=== PATIENT | male | born 1965 | race Caucasian/White ===

== ENCOUNTER 2020-08-17 19:14 | Emergency (ER) | payer MEDICAID ==
[~2020-08-17] VITALS: Ht 175.3 cm; Wt 99.0 kg
[2020-08-17 20:28] LABS: BASOPHILS % (AUTO) 1 % (0-1); EOSINOPHILS % (AUTO) 1 % (1-7); LYMPHOCYTES % (AUTO) 13 % (22-44); MD NO; MEAN CORPUSCULAR HEMOGLOBIN 33.2 pg (27.5-34.5); MEAN CORPUSCULAR HGB CONC 34.1 g/dL (33.2-36.2); MEAN PLATELET VOLUME 7.4 fL (7.4-10.4); MONOCYTES % (AUTO) 8 % (2-9); NEUTROPHILS % (AUTO) 77 % (42-75); PLATELET COUNT 272 x10^3/uL (130-400); RED BLOOD COUNT 5.08 x10^6/uL (4.38-5.82); RED CELL DISTRIBUTION WIDTH 14.2 % (9.4-14.8)
--- NOTE | 2020-08-17 20:32 | NUR ---
Patient is resting comfortably in bed. Vital Signs within normal limits.
[2020-08-17 20:33] LABS: ALANINE AMINOTRANSFERASE 88 U/L (12-78); ALBUMIN 3.5 g/dL (3.4-5.0); ANION GAP 9 mmol/L (5-15); CALCIUM 8.8 mg/dL (8.5-10.1); CHLORIDE 99 mmol/L (98-107); CREATININE 1.24 mg/dL (0.7-1.3)
[2020-08-17 20:35] LABS: ALKALINE PHOSPHATASE 158 U/L (45-117); BILIRUBIN,TOTAL 0.5 mg/dL (0.2-1.0); TOTAL PROTEIN 8.2 g/dL (6.4-8.2)
--- NOTE | 2020-08-17 20:51 | NUR ---
REPORT RECIEVED FROM ILENE LY. PT RESTING COMFORTABLY IN [facility]
[2020-08-17 21:11] VITALS: BP 159/79
--- NOTE | 2020-08-17 21:34 | NUR ---
PT UNDERSTANDING OF D/C INSTRUCTIONS. AWAITING REGISTRATION TO REGISTER PT PRIOR TO DISCHARGE
--- NOTE | 2020-08-17 22:00 | NUR ---
REGISTRATION AT BEDSIDE
== END 2020-08-17 22:07 | disposition home or self-care (01) ==
LOC: ED 19:44
DX: B34.9 Viral infection, unspecified (principal); Z20.822 Contact with and (suspected) exposure to COVID-19; R94.31 Abnormal electrocardiogram [ECG] [EKG]; F17.290 Nicotine dependence, other tobacco product, uncomplicated
CPT/HCPCS: 36415; 71045; 80053; 85025; 93005; 99285; 99406; U0003